=== PATIENT | female | born 1945 | race Caucasian/White ===

== ENCOUNTER 2018-07-28 07:52 | Outpatient (CLI) | payer MEDICARE ==
--- NOTE | 2018-07-28 10:04 | RAD ---
LEFT FOOT 3 VIEWS: History Foot pain. Calcaneal spurs are present. Arthritic changes of the 1st metatarsophalangeal joint are seen. There are no signs of fracture or dislocation. IMPRESSION: Arthritic changes of the foot. No acute changes. POS: MICHELLE
--- NOTE | 2018-07-28 11:00 | ULT ---
ULTRASOUND ABDOMEN COMPLETE HISTORY: History of aneurysm. TECHNIQUE: Ricardo-scale ultrasound evaluation of the liver, gallbladder, spleen, pancreas, common bile duct, kidne ys, abdominal aorta, and inferior vena cava (IVC). FINDINGS: The imaged abdominal aorta measures less than 3 cm in diameter. No discrete abdominal aortic aneurys m is visualized on the provided sonographic views. No focal hepatic lesion. The patient is status p ost cholecystectomy. No acute abnormality of the imaged kidneys or spleen. There is no ascites. IMPRESSION: 1. No acute intraabdominal process. 2. No evidence of an abdominal aortic aneurysm is demonstrated. POS: MICHELLE
== END 2018-07-28 07:53 | disposition home or self-care (01) ==
LOC: MADULT 07:52
PROVIDERS: ATTEND Family Medicine
DX: I71.4 Abdominal aortic aneurysm, without rupture (principal); M79.672 Pain in left foot; M19.072 Primary osteoarthritis, left ankle and foot
CPT/HCPCS: 76700

== ENCOUNTER 2024-02-09 10:41 | Emergency (ER) | payer MEDICARE ==
[~2024-02-09 10:41] MED LIST: Iopamidol 370 76% 100 ML VIAL ONE
[2024-02-09 11:21] LABS: #Basophils 0.2 thou/uL (0.0-0.2); #Eosinphils 0.2 thou/uL (0.0-0.7); #Lymphocytes 4.4 thou/uL (1.20-3.40); #Neutrophils 5.2 thou/uL (1.40-6.50); %Basophils 1.4 % (0.0-1.0); %Eosinophils 2.2 % (0.0-10.0); %Monocytes 8.8 % (0.0-10.0); %Neutrophils 47.6 % (42.0-75.0); Hematocrit 47.3 % (36.0-47.0); Hemoglobin 14.9 g/dL (12.0-16.0); Mean Corpuscular HGB CONC 31.6 g/dL (32.0-36.0); Mean Corpuscular Hemoglobin 29.6 pg (27.0-31.0); Mean Corpuscular Volume 93.6 fl (78.0-98.0); Mean Platelet Volume 6.8 fL (7.4-10.4); Platelet Count 273 10x3/uL (130-400); Red Blood Cell (RBC) Count 5.05 mill/uL (4.20-5.40)
[2024-02-09 11:24] LABS: PTT 25.5 sec (22.9-36.1); Prothrombin Time 12.7 sec (12.0-14.7)
[2024-02-09] MEDS ORDERED: Ondansetron PF 4 MG/2 ML Vial ONE (11:26)
[2024-02-09] MEDS ORDERED: Sodium Chloride 0.9% 1,000 ML ONE (11:26)
[2024-02-09] MEDS ORDERED: Morphine 4 MG/ML VIAL ONE (11:26)
[2024-02-09 11:32] LABS: ALT (SGPT) 17 U/L (8-55); AST (SGOT) 16 U/L (5-34); Albumin 4.1 g/dL (3.4-4.8); Alkaline Phosphatase 95 U/L (40-110); Anion Gap 16 mmol/L (10-20); BUN (Urea Nitrogen) 12 mg/dL (9.8-20.1); Bilirubin, Total 0.5 mg/dL (0.2-1.2); Calc. Creatinine Clearance 0 mL/min (70-130); Calcium 8.9 mg/dL (7.8-10.44); Carbon Dioxide 21 mmol/L (23-31); Chloride 106 mmol/L (98-107); Estimated GFR 71; Globulin 2.4 g/dL (2.4-3.5); Glucose 119 mg/dL (83-110); Lipase 9 U/L (8-78); Potassium 3.8 mmol/L (3.5-5.1); Protein, Total 6.5 g/dL (5.8-8.1); Sodium 139 mmol/L (136-145)
[2024-02-09 11:33] LABS: Troponin I Less than 0.010 ng/mL (< 0.028)
[2024-02-09 11:38] LABS: Bilirubin Negative (Negative); Blood, Urine Small (Negative); Glucose, Urine (Dipstick) Negative (Negative); Ketone, Urine Trace mg/dL (Negative); Leukocyte Large (Negative); Nitrite Negative (Negative); Protein, Urine (Dipstick) Negative (Neg-Trace); Specific Gravity, Urine 1.025 (1.005-1.030); Urobilinogen 0.2 mg/dL (Less than 2); pH, Urine 5.5 (5.0-9.0)
[2024-02-09 11:39] LABS: Clarity Hazy (Clear)
[2024-02-09 11:44] LABS: CAUTI Indications for Culture Pelvic or flank pain
[2024-02-09 11:45] LABS: Bacteria/HPF 2+ HPF (None Seen)
[2024-02-09 11:46] LABS: Urine Culture Reflex Yes Yes
[2024-02-09] MEDS ORDERED: cefTRIAXone (ROCEPHIN) 2 GM VIAL ONE (11:54)
[2024-02-09] MEDS ORDERED: Sodium Chloride 0.9% 100 ML ONE (11:54)
== END 2024-02-09 14:20 | disposition home or self-care (01) ==
LOC: MADERS 10:41
DX: N20.1 Calculus of ureter (principal); I71.40 Abdominal aortic aneurysm, without rupture, unspecified; N10 Acute pyelonephritis
CPT/HCPCS: 36415; 71046; 74177; 80053; 81001; 83605; 83690; 84484; 85025; 85610; 85730; 87040; 87086; 93005; 94760; 96365; 96375; J0696; J2270; J2405; J3490; J7050; Q9967

== ENCOUNTER 2024-05-08 11:43 | Emergency (ER) | payer MEDICARE ==
[2024-05-08 12:20] LABS: #Basophils 0.1 thou/uL (0.0-0.2); #Eosinphils 0.1 thou/uL (0.0-0.7); #Monocytes 0.4 thou/uL (0.11-0.59); #Neutrophils 3.6 thou/uL (1.40-6.50); %Basophils 1.2 % (0.0-1.0); %Eosinophils 2.4 % (0.0-10.0); %Lymphocytes 32.4 % (21.0-51.0); %Monocytes 5.9 % (0.0-10.0); %Neutrophils 58.1 % (42.0-75.0); Hematocrit 50.4 % (36.0-47.0); Hemoglobin 15.8 g/dL (12.0-16.0); Mean Corpuscular HGB CONC 31.3 g/dL (32.0-36.0); Mean Corpuscular Hemoglobin 29.5 pg (27.0-31.0); Mean Corpuscular Volume 94.2 fl (78.0-98.0); Mean Platelet Volume 6.3 fL (7.4-10.4); Platelet Count 224 10x3/uL (130-400); RBC Distribution Width 12.4 % (11.5-14.5); Red Blood Cell (RBC) Count 5.36 mill/uL (4.20-5.40); White Blood Cell (WBC) Count 6.1 10x3/uL (4.8-10.8)
[2024-05-08 12:38] LABS: ALT (SGPT) 19 U/L (8-55); AST (SGOT) 19 U/L (5-34); Alkaline Phosphatase 84 U/L (40-110); Anion Gap 18 mmol/L (10-20); BUN (Urea Nitrogen) 9 mg/dL (9.8-20.1); Bilirubin, Total 0.7 mg/dL (0.2-1.2); Calc. Creatinine Clearance 0 mL/min (70-130); Calcium 9.2 mg/dL (7.8-10.44); Carbon Dioxide 19 mmol/L (23-31); Chloride 109 mmol/L (98-107); Estimated GFR 74; Glucose 175 mg/dL (83-110); Potassium 3.9 mmol/L (3.5-5.1); Protein, Total 7.1 g/dL (5.8-8.1); Sodium 142 mmol/L (136-145)
[2024-05-08 12:43] LABS: Troponin I Less than 0.010 ng/mL (< 0.028)
[2024-05-08 12:49] LABS: Albumin 4.1 g/dL (3.4-4.8)
== END 2024-05-08 13:25 | disposition home or self-care (01) ==
LOC: MADERS 11:43
DX: R06.02 Shortness of breath (principal); R53.1 Weakness
CPT/HCPCS: 80053; 83735; 83880; 84443; 84484; 85025; 85379; 93005

== ENCOUNTER 2024-05-12 14:09 | Emergency (ER) | payer MEDICARE | END 2024-05-12 16:02 | disposition home or self-care (01) | LOC: MADERS 14:09 | DX: R53.1 Weakness (principal); R42 Dizziness and giddiness; R06.02 Shortness of breath; Z87.891 Personal history of nicotine dependence | CPT/HCPCS: 70450; 93005; 94760 ==